=== PATIENT | male | born 1950 | race Caucasian/White ===

== ENCOUNTER 2016-09-16 12:51 | Emergency (ER) | payer MEDICARE ==
[~2016-09-16] VITALS: Ht 170.2 cm; Wt 76.1 kg
[~2016-09-16 12:51] MED LIST: AMIO200T42 PO; ASPI-621 PO; CALC-666 PO; CALC667C PO; CEFD300C37 PO; CIPR500T87 PO; DOCU-30 PO; ENAL2.5T PO; ERGO500017 PO; HYDR-3240 PO; IBUP200T48 PO; METO25TA35 PO; METR500T PO; OMEP-110 PO; OMEP20TA62 PO; ONDA4TAB7 PO; PRED10TA PO; PRED20TA PO; TEMA15CA6 PO
[2016-09-16] MEDS ORDERED: SODIUM CHLORIDE 0.9% 1,000ML IVBOLUS ONE (13:30)
[2016-09-16] MEDS ORDERED: SODIUM CHLORIDE FLUSH 10ML SYR IVF ONE (13:30)
[2016-09-16 13:49] LABS: ASPARTATE AMINO TRANSFERASE 24 U/L (15-37); BLOOD UREA NITROGEN 15 mg/dL (7-18)
[2016-09-16 14:14] VITALS: BP 123/84
[2016-09-16 14:23] LABS: DIFF TOTAL CELLS COUNTED 100 CELL DIFF
[2016-09-16 14:25] LABS: VERIFY COUNTS? YES
[2016-09-16 14:27] LABS: ANISOCYTOSIS 1+
== END 2016-09-16 15:19 | disposition home or self-care (01) ==
LOC: ED 15:13
DX: G45.2 Multiple and bilateral precerebral artery syndromes (principal); I10 Essential (primary) hypertension
CPT/HCPCS: 36415; 70450; 80053; 85025; 85610; 85730; 93005; 96360; 99285; J7030

== ENCOUNTER 2016-12-25 11:03 | Day surgery (SDC) | payer MEDICARE ==
[2016-12-22 14:30] LABS: HEMATOCRIT 37.7 % (39.2-51.8); HEMOGLOBIN 12.6 g/dL (13.7-18.0); WHITE BLOOD COUNT 8.5 x10^3/uL (3.4-10)
[2016-12-22 14:44] LABS: BLOOD UREA NITROGEN 18 mg/dL (7-18)
[2016-12-22 14:48] LABS: ASPARTATE AMINO TRANSFERASE 20 U/L (15-37)
[~2016-12-25] VITALS: Ht 167.6 cm; Wt 72.2 kg
[~2016-12-25 11:03] MED LIST changes: +DOCU-131 PO; -DOCU-30 PO; +METO50TA82 PO
[2016-12-25] MEDS ORDERED: SODIUM CHLORIDE 0.9% 1,000 ML IV SCH (11:43)
[2016-12-25 11:44] VITALS: BP 149/81
[2016-12-25] MEDS ORDERED: LIDOCAINE 1%, 2ML SQ PRN (12:00)
[2016-12-25 12:27] LABS: BLOOD UREA NITROGEN 17 mg/dL (7-18)
[2016-12-25 12:32] LABS: ASPARTATE AMINO TRANSFERASE 18 U/L (15-37)
[2016-12-25] MEDS ORDERED: FENTANYL PF 100 MCG/2ML ONE ×2 (12:39→15:02)
[2016-12-25] MEDS ORDERED: MIDAZOLAM 1 MG/ML, 2ML ONE (12:39)
[2016-12-25] MEDS ORDERED: BUPIVACAINE/PF 0.5% ONE (12:59)
[2016-12-25] MEDS ORDERED: PROTAMINE SULFATE 10 MG/ML, 5ML ONE (12:59)
[2016-12-25] MEDS ORDERED: EPINEPHRINE 1 MG/ML, 1ML ONE (12:59)
[2016-12-25] MEDS ORDERED: HEPARIN 1,000 UNITS/ML, 10ML ONE (12:59)
[2016-12-25] MEDS ORDERED: NEOSTIGMINE 1 MG/ML, 10ML ONE (13:48)
[2016-12-25] MEDS ORDERED: DEXAMETHASONE 4 MG/ML, 1ML ONE (13:48)
[2016-12-25] MEDS ORDERED: CEFAZOLIN 1,000 MG ONE (13:48)
[2016-12-25] MEDS ORDERED: PROPOFOL 10 MG/ML, 20ML ONE (13:48)
[2016-12-25] MEDS ORDERED: ROCURONIUM 10 MG/ML ONE (13:48)
[2016-12-25] MEDS ORDERED: ONDANSETRON 2MG/ML, 2ML ONE (13:48)
[2016-12-25] MEDS ORDERED: GLYCOPYRROLATE 0.2MG/1ML, 5ML ONE (13:48)
[2016-12-25] MEDS ORDERED: PHENYLEPHRINE 10 MG/ML ONE (13:48)
[2016-12-25] MEDS ORDERED: SUCCINYLCHOLINE 20 MG/ML, 10ML ONE (13:48)
[2016-12-25] MEDS ORDERED: MEPERIDINE/PF 25MG/0.5ML IVPush PRN (14:30)
[2016-12-25] MEDS ORDERED: MIDAZOLAM 1 MG/ML, 2ML IV PRN (14:30)
[2016-12-25] MEDS ORDERED: PROMETHAZINE 25 MG/ML, 1ML IV PRN (14:30)
[2016-12-25] MEDS ORDERED: ALBUTEROL/IPRATROPIUM 2.5MG/0.5MG, 3 ML NPPB PRN (14:30)
[2016-12-25] MEDS ORDERED: ONDANSETRON 2MG/ML, 2ML IVPush PRN (14:30)
[2016-12-25] MEDS ORDERED: OXYcodone 5 MG/5 ML ORAL.SOL UDC PO PRN (14:30)
[2016-12-25] MEDS ORDERED: HYDROmorphone 1 MG/ML, 1ML IV PRN (14:30)
[2016-12-25] MEDS ORDERED: LABETALOL 5MG/ML, 20ML IV PRN (14:30)
[2016-12-25] MEDS ORDERED: hydrALAzine 20 MG/ML, 1ML IV PRN (14:30)
[2016-12-25] MEDS ORDERED: ACETAMINOPHEN 325 MG TABLET PO PRN (14:30)
[2016-12-25] MEDS ORDERED: ACETAMINOPHEN 325 MG TABLET ONE (15:01)
[2016-12-25] MEDS ORDERED: ACETAMINOPHEN 650 MG/20.3 ML UDC ONE (15:01)
[2016-12-25] MEDS: FENTANYL PF 100 MCG/2ML IV PRN ×2 (15:15→15:25)
== END 2016-12-25 16:45 | disposition home or self-care (01) ==
LOC: OUT 11:03
PROVIDERS: ATTEND Surgery
DX: N18.6 End stage renal disease (principal); Z90.49 Acquired absence of other specified parts of digestive tract; Z98.890 Other specified postprocedural states
CPT/HCPCS: 36415; 49324; 80053; 85025; 85610; 85730; 93005; C1750; J0171; J0330; J0690; J1100; J1644; J2250; J2370; J2405; J2704; J2710; J3010; J3490; J7030; J2720

== ENCOUNTER 2017-03-24 06:15 | Day surgery (SDC) | payer MEDICARE ==
[2017-03-22 10:39] LABS: HEMATOCRIT 34.2 % (39.2-51.8); HEMOGLOBIN 11.6 g/dL (13.7-18.0); WHITE BLOOD COUNT 7.7 x10^3/uL (3.4-10)
[2017-03-22 10:46] LABS: BLOOD UREA NITROGEN 44 mg/dL (7-18)
[2017-03-22 10:49] LABS: ASPARTATE AMINO TRANSFERASE 19 U/L (15-37)
[~2017-03-24] VITALS: Ht 167.6 cm; Wt 73.0 kg
[~2017-03-24 06:15] MED LIST changes: +vitamin d PO
[2017-03-24] MEDS ORDERED: FENTANYL PF 100 MCG/2ML ONE ×2 (07:26→08:36)
[2017-03-24] MEDS ORDERED: MIDAZOLAM 1 MG/ML, 2ML ONE ×2 (07:26→08:36)
[2017-03-24] MEDS ORDERED: BUPIVACAINE/PF 0.5% ONE (07:37)
[2017-03-24] MEDS ORDERED: HEPARIN 1,000 UNITS/ML, 10ML ONE (07:37)
[2017-03-24] MEDS ORDERED: THROMBIN 20,000 UNIT VIAL TP ONE (07:37)
[2017-03-24] MEDS ORDERED: EPINEPHRINE 1 MG/ML, 1ML ONE (07:37)
[2017-03-24] MEDS ORDERED: ONDANSETRON 2MG/ML, 2ML ONE (08:36)
[2017-03-24] MEDS ORDERED: PROPOFOL 10 MG/ML, 20ML ONE (08:36)
[2017-03-24] MEDS ORDERED: NEOSTIGMINE 1 MG/ML, 10ML ONE (08:36)
[2017-03-24] MEDS ORDERED: DEXAMETHASONE 4 MG/ML, 1ML ONE (08:36)
[2017-03-24] MEDS ORDERED: ROCURONIUM 10 MG/ML,10ML ONE (08:36)
[2017-03-24] MEDS ORDERED: PHENYLEPHRINE 10 MG/ML ONE (08:36)
[2017-03-24] MEDS ORDERED: CEFAZOLIN 1,000 MG ONE (08:36)
[2017-03-24] MEDS ORDERED: GLYCOPYRROLATE 0.2MG/1ML, 5ML ONE (08:36)
[2017-03-24] MEDS ORDERED: BUPIVACAINE/PF-EPI 0.5% 1:200K INFIL ONE (08:58)
[2017-03-24] MEDS ORDERED: HYDROmorphone 1 MG/ML, 1ML IV PRN (09:30)
[2017-03-24] MEDS ORDERED: FENTANYL PF 100 MCG/2ML IV PRN (09:30)
[2017-03-24] MEDS ORDERED: OXYcodone 5 MG/5 ML ORAL.SOL UDC PO PRN (09:30)
[2017-03-24] MEDS ORDERED: ACETAMINOPHEN 325 MG TABLET PO PRN (09:30)
[2017-03-24] MEDS ORDERED: OXYcodone 5 MG/5 ML ORAL.SOL UDC ONE (09:56)
[2017-03-24 12:10] VITALS: BP 140/52
[2017-03-24 13:10] VITALS: BP 122/63
[2017-03-24] MEDS ORDERED: ACET1TAB64 PO (13:36)
== END 2017-03-24 13:55 ==
LOC: OUT 06:15 → 4NOR 06:16 → OUT 13:55
PROVIDERS: ATTEND Surgery
DX: T82.49XA Other complication of vascular dialysis catheter, initial encounter (principal); T82.898A Other specified complication of vascular prosthetic devices, implants and grafts, initial encounter; Y83.8 Other surgical procedures as the cause of abnormal reaction of the patient, or of later complication, without mention of misadventure at the time of the procedure; Y92.89 Other specified places as the place of occurrence of the external cause; N18.6 End stage renal disease
CPT/HCPCS: 36415; 36832; 49324; 71020; 80053; 85025; 85610; 85730; 93005; J0171; J0690; J1100; J1644; J2250; J2370; J2405; J2704; J2710; J3010; J3490